=== PATIENT | female | born 1970 | race Caucasian/White ===

== ENCOUNTER 2018-05-03 00:08 | Emergency (ER) | payer BC ==
--- NOTE | 2018-05-03 00:52 | EDM.PDOC ---
ED HPI GENERAL MEDICAL PROBLEM - General Stated Complaint: LT FOOT POSS BROKEN Time Seen by Provider: 05/03/18 00:15 Source of Information: Reports: Patient, Family History Limitations: Reports: No Limitations - History of Present Illness INITIAL COMMENTS - FREE TEXT/NARRATIVE: c/o L foot and toe pain From [place], moving to local area, not working. At a family member's house, does not drink alcohol, missed the last step and her foot and leg slide under a care. able to walk, however has pain in her toes and foot XR of foot is neg Review of Systems - Review of Systems Review Of Systems: See Below Constitutional: Reports: No Symptoms Eyes: Reports: No Symptoms Ears: Reports: No Symptoms Nose: Reports: No Symptoms Mouth/Throat: Reports: No Symptoms Respiratory: Reports: No Symptoms Cardiovascular: Reports: No Symptoms GI/Abdominal: Reports: No Symptoms Genitourinary: Reports: No Symptoms Musculoskeletal: Reports: Leg Pain, Foot Pain Skin: Reports: No Symptoms Neurological: Reports: No Symptoms Psychiatric: Reports: No Symptoms ED EXAM, GENERAL - Physical Exam Exam: See Below Exam Limited By: No Limitations General Appearance: Alert, WD/WN, Mild Distress Extremities: Other (superficial abrasion of lateral proximal 1/3rd of left pretib, L ankle NT with no swell or ecchymosis, mild ecchymosis across dorsum of L foot with corresponding tenderness that is nonlocalizing, ecchymosis of 2nd , 3rd & 4th toes without swell, mild tender) Course - Vital Signs Last Recorded V/S: Last Vital Signs Temp 36.6 C 05/03/18 00:19 Pulse 87 05/03/18 00:19 Resp BP 156/71 H 05/03/18 00:19 Pulse Ox 98 05/03/18 00:19 - Orders/Labs/Meds Orders: Active Orders 24 hr Category Date Time Status Foot Comp Min 3V Lt [CR] Stat Exams 05/03/18 00:14 Ordered Departure - Departure Time of Disposition: 00:50 Disposition: Home, Self-Care 01 Condition: Good Clinical Impression: Contusion of left foot including toes, Abrasion of left lower extremity - Discharge Information Instructions: Foot Contusion, Abrasion Referrals: Antoine Rocha MD [Primary Care Provider] - Additional Instructions: For pain and inflammation, take ibuprofen 200 mg 3 tabs and acetaminophen 500 mg 2 tabs 4 times a day for 3-5 days, longer if needed. Use ice for 10 minutes 4 times a day for 2 days. Use Alexandr wrap for the next 3-5 days, longer if needed. Limit walking for 2 days. See your doctor in 5-6 days if not much better. - My Orders Last 24 Hours: My Active Orders 05/03/18 00:14 Foot Comp Min 3V Lt [CR] Stat - Assessment/Plan Last 24 Hours: My Active Orders 05/03/18 00:14 Foot Comp Min 3V Lt [CR] Stat
--- NOTE | 2018-05-03 11:04 | CR ---
INDICATION: Fall down a step, toe and foot pain. LEFT FOOT: Three views of the left foot were obtained and revealed suggestion of an oblique fracture through the medial aspect of the proximal metaphysis of the distal phalanx of the great toe. If a real finding, this is a hairline fracture in good position and alignment. This appearance could be secondary to nutrient foramina. No displacement is seen. Degenerative changes are noted at the first metatarsophalangeal joint, DIPJ of the second toe, and DIPJ of the third toe, as well as the PIPJ of the third toe. A fragmented posterior calcaneal spur is noted. No other bone or joint abnormality was suggested. IMPRESSION: 1. Possible hairline fracture of the distal phalanx of the great toe - good position and alignment. This could be confirmed by re-examination in 10-14 days. 2. Osteoarthritis. 3. Fragmented heel spur. MTDD
== END 2018-05-03 01:05 | disposition home or self-care (01) ==
LOC: FB.ED 00:08
DX: S90.32XA Contusion of left foot, initial encounter (principal); W10.9XXA Fall (on) (from) unspecified stairs and steps, initial encounter
CPT/HCPCS: 73630-LT; 99283